=== PATIENT | male | born 1940 | race Caucasian/White ===

== ENCOUNTER 2020-05-11 13:27 | Inpatient (IN) | payer MEDICARE, OTHER ==
[2020-05-11 14:01] LABS: #Basophils 0.1 thou/uL (0.0-0.2); #Eosinphils 0.2 thou/uL (0.0-0.7); #Lymphocytes 1.4 thou/uL (1.20-3.40); #Neutrophils 5.3 thou/uL (1.40-6.50); %Basophils 0.8 % (0.0-1.0); %Lymphocytes 17.4 % (21.0-51.0); %Neutrophils 66.8 % (42.0-75.0); Hemoglobin 14.1 g/dL (14.0-18.0); Mean Corpuscular HGB CONC 33.6 g/dL (32.0-36.0); Mean Corpuscular Hemoglobin 31.5 pg (27.0-31.0); Mean Corpuscular Volume 93.8 fL (78.0-98.0); Mean Platelet Volume 7.5 fL (7.4-10.4); Platelet Count 268 thou/uL (130-400); RBC Distribution Width 13.5 % (11.5-14.5); Red Blood Cell (RBC) Count 4.48 mill/uL (4.70-6.10)
--- NOTE | 2020-05-11 14:04 | RAD ---
PORTABLE CHEST ONE VIEW: 05/11/20 at 1:58 p.m. HISTORY: Altered mental status. FINDINGS: The heart size is normal. The aorta is tortuous. The lungs are expanded without focal areas of consol idation, pneumothoraces, or pleural effusions. There are degenerative changes in the spine. IMPRESSION: No acute process. POS: [facility]
[2020-05-11 14:21] LABS: ALT (SGPT) 11 U/L (8-55); AST (SGOT) 14 U/L (5-34); Albumin 4.2 g/dL (3.4-4.8); Alkaline Phosphatase 61 U/L (40-110); Anion Gap 12 mmol/L (10-20); BUN (Urea Nitrogen) 17 mg/dL (8.4-25.7); Bilirubin, Total 0.9 mg/dL (0.2-1.2); Calc. Creatinine Clearance 0 mL/min (70-130); Calcium 9.6 mg/dL (7.8-10.44); Carbon Dioxide 27 mmol/L (23-31); Chloride 100 mmol/L (98-107); Estimated GFR-MDRD 65; Glucose 122 mg/dL (83-110); Potassium 3.8 mmol/L (3.5-5.1); Protein, Total 7.2 g/dL (5.8-8.1); Sodium 135 mmol/L (136-145)
--- NOTE | 2020-05-11 14:22 | CT ---
CT head noncontrast HISTORY: Altered mental status. FINDINGS: A very large extra-axial biconvex heterogeneous predominantly low density fluid collection along the left frontal convexity measures up to 11.6 cm length by 2.7 cm depth. It contains some irregular linear areas of increased density and significantly effaces the left frontal cortex. Small amount of vasogenic edema within the underlying left frontal lobe. Effacement of the left lateral ventricle with up to 1.0 cm rightward shift of the septum pellucidum. No associated calvarial fracture apparent. IMPRESSION : Very large left frontal subdural hematoma of mixed age, including some acute component. Findings were called to Trinidad Pat in the emergency department at 1414 hours. Code CR.
[2020-05-11 15:12] LABS: PTT 30.6 sec (22.9-36.1); Prothrombin Time 13.4 sec (12.0-14.7)
[2020-05-11] MEDS ORDERED: Morphine 2 MG/ML VIAL SLOW IVP PRN (16:00)
[2020-05-11] MEDS ORDERED: Ondansetron PF 4 MG/2 ML Vial IVP PRN (16:00)
[2020-05-11] MEDS ORDERED: HYDROcodone/Acetaminophen 7.5/325 mg Tablet PO PRN (16:00)
[2020-05-11] MEDS ORDERED: Acetaminophen 325 MG TAB PO PRN (16:00)
[2020-05-11] MEDS ORDERED: Acetaminophen/Codeine 30-300mg Tablet PO PRN (16:20)
[2020-05-11] MEDS ORDERED: traMADol HCl 50 MG TAB PO PRN (16:20)
[2020-05-11 17:39] VITALS: BMI 11.2
[2020-05-11] MEDS ORDERED: levETIRAcetam 500 MG TAB PO SCH (18:30)
[2020-05-11] MEDS: Sodium Chloride 0.9% 1,000 ML IV SCH (19:09)
--- NOTE | 2020-05-11 23:26 | HP ---
CHIEF COMPLAINT: Word-finding difficulty. HISTORY OF PRESENT ILLNESS: Mr. Rojas is a very pleasant 79-year-old gentleman, who presented with his to the emergency department today for evaluation of intermittent word-finding difficulties over the last 3 days. The patient's states that he has had trouble with forming sentences and picking up words intermittently over the last few days. Otherwise, he states that he has been at baseline. The patient has no weakness in his extremities or difficulty ambulating. In fact, he mowed the lawn yesterday. The patient denies any headache, vision changes, imbalance, dizziness, or any other symptoms. He denies any recent fall, head injury, or any other trauma. He states that otherwise he is feeling well. He is overall a very healthy gentleman. He is not taking any aspirin or other anticoagulants. MEDICATIONS: See list. ALLERGIES: NO KNOWN DRUG ALLERGIES. REVIEW OF SYSTEMS: Positive for word-finding difficulties, expressive aphasia. Otherwise, 12-point review of systems is negative. PHYSICAL EXAMINATION: The patient is awake, alert, and appropriate and in no apparent distress. Overall, he is alert and oriented x3. However, he incorrectly stated the year is 1999, but correctly stated the month and day of the week. Cranial nerves 2 through 12 are intact. Pupils are 2 mm, equal, and reactive to light. Extraocular movements are intact. No tongue fasciculations. No pronator drift. The patient has full range of motion of the upper and lower extremities bilaterally. He has 5/5 strength throughout his upper and lower extremity myotomes bilaterally. Sensation to light touch was intact throughout all extremities. Gait was not assessed at this time. IMPRESSION AND DIAGNOSES: 1. Large atraumatic left subdural hematoma with midline chest. 2. Expressive aphasia. PLAN: The case has been discussed and imaging reviewed with Dr. Darnell. CT of the brain showed findings of a very large left convexity subdural hematoma measuring approximately 3 cm at widest diameter, associated with approximately 1 cm of midline shift. Given that patient today, we were unable to take the patient to surgery at this time. Given his neurologic exam, he appears excellent at this time. No need for emergent operation. However, given the size of the subdural hematoma and potential for worsening of neurologic status, our team will plan to take patient to the OR tomorrow morning for left frontoparietal catalino hole evacuation of the subdural hematoma. Overnight, he will be admitted to the Critical Care Unit with q.1 hour neurologic checks. He will remain n.p.o. We will load the Keppra and place the patient on 500 mg p.o. b.i.d. as maintenance dose for one week for seizure prophylaxis. Discussed this plan with the patient, his , and family member via telephone call. I showed them the bleed on CAT scan demonstrates the large size of the bleed. They have given verbal consent for the operation at this time, as well as verbal consent should patient decline neurologically and require emergent catalino hole evacuation overnight. Our team will re-evaluate the patient in the morning and answer any additional questions the patient and/or his family may have. Please call for any neurologic changes or other concerns. This was a 50-minute initial consult in which greater than 50% of the time was spent in review of records, review of imaging, evaluation, examination of the patient, and formulation of a plan. The remaining time was spent in counseling and coordination of care. Job ID: [id number]
[2020-05-12 04:19] LABS: #Basophils 0.1 thou/uL (0.0-0.2); #Eosinphils 0.4 thou/uL (0.0-0.7); #Lymphocytes 1.1 thou/uL (1.20-3.40); #Monocytes 0.9 thou/uL (0.11-0.59); #Neutrophils 4.5 thou/uL (1.40-6.50); %Lymphocytes 15.7 % (21.0-51.0); %Monocytes 12.5 % (0.0-10.0); %Neutrophils 64.7 % (42.0-75.0); Hemoglobin 13.1 g/dL (14.0-18.0); Mean Corpuscular HGB CONC 33.4 g/dL (32.0-36.0); Mean Corpuscular Hemoglobin 31.7 pg (27.0-31.0); Mean Corpuscular Volume 94.9 fL (78.0-98.0); Mean Platelet Volume 7.5 fL (7.4-10.4); Platelet Count 206 thou/uL (130-400); RBC Distribution Width 13.2 % (11.5-14.5); Red Blood Cell (RBC) Count 4.12 mill/uL (4.70-6.10); White Blood Cell (WBC) Count 6.9 thou/uL (4.8-10.8)
[2020-05-12 04:30] LABS: INR-International Normal Ratio 1.1; PTT 33.1 sec (22.9-36.1); Prothrombin Time 13.7 sec (12.0-14.7)
[2020-05-12 04:38] LABS: Anion Gap 11 mmol/L (10-20); BUN (Urea Nitrogen) 13 mg/dL (8.4-25.7); Calc. Creatinine Clearance 33 mL/min (70-130); Calcium 8.6 mg/dL (7.8-10.44); Carbon Dioxide 28 mmol/L (23-31); Chloride 102 mmol/L (98-107); Estimated GFR-MDRD 79; Glucose 89 mg/dL (83-110); Potassium 3.9 mmol/L (3.5-5.1); Sodium 137 mmol/L (136-145)
[2020-05-12] MEDS: levETIRAcetam 500 MG TAB PO SCH ×2 (07:37→20:44)
[2020-05-12] MEDS: Sodium Chloride 0.9% 1,000 ML IV SCH ×2 (07:38→13:33)
[2020-05-12] MEDS ORDERED: Lidocaine 0.5%/Epinephrine 1:200,000 50 ml Vial ONE (09:15)
[2020-05-12] MEDS ORDERED: Bacitracin Zinc Ointment 30 gm TUBE ONE (09:16)
[2020-05-12] MEDS ORDERED: Fentanyl 100 MCG/2 ML VIAL ONE ×3 (09:30→11:48)
[2020-05-12] MEDS ORDERED: Phenylephrine 10 MG/ML VIAL ONE (09:31)
--- NOTE | 2020-05-12 11:17 | PRG ---
DATE OF SERVICE: 05/12/2020 Mr. Rojas is a 79-year-old male with no antecedent trauma. He is not on blood thinners. He presented with dysphasia, word-finding difficulty. He was found to have a large mixed density subdural hematoma with midline shift and mass effect. We are planning for trip to the OR for catalino hole evacuation. Job ID: [id number]
[2020-05-12] MEDS ORDERED: Lidocaine 1% PF 5 ML VIAL ONE (11:35)
[2020-05-12] MEDS ORDERED: Rocuronium Bromide 10 MG/ML (10ML VIAL) ONE (11:35)
[2020-05-12] MEDS ORDERED: Glycopyrrolate 0.2 MG/ML 5 ML SYRINGE ONE (11:35)
[2020-05-12] MEDS ORDERED: Esmolol 100 MG/10 ML VIAL ONE (11:35)
[2020-05-12] MEDS ORDERED: PROPOFOL 200 MG/20 ML VIAL ONE (11:35)
[2020-05-12] MEDS ORDERED: PHENYLEPHRINE-NS 100 MCG/ML 10 ML SYRINGE ONE (11:35)
[2020-05-12] MEDS ORDERED: PACU-Morphine 4MG/ML VIAL SLOW IVP PRN (11:44)
[2020-05-12] MEDS ORDERED: Ondansetron HCl/PF 4 MG/2 ML Vial IVP PRN (11:44)
[2020-05-12] MEDS ORDERED: HYDROmorphone 2 MG/ML VIAL SLOW IVP PRN (11:44)
[2020-05-12] MEDS ORDERED: Promethazine HCl 25 MG/ML VIAL SLOW IVP PRN (11:44)
[2020-05-12] MEDS ORDERED: Promethazine HCl 25 MG/ML VIAL IM PRN (11:44)
--- NOTE | 2020-05-12 15:39 | CON ---
DATE OF CONSULTATION: 05/12/2020 REASON FOR CONSULTATION: ICU admission. HISTORY OF PRESENT ILLNESS: This is a 79-year-old who presented to the Neurosurgery Service with a left-sided subdural hematoma, was taken to the OR today for drainage. He is doing well at the current time and has no complaints. PAST MEDICAL HISTORY: Hypertension. PAST SURGICAL HISTORY: Hemorrhoid surgery. SOCIAL HISTORY: Former smoker. Quit over 10 years ago. Does not consume alcohol. ALLERGIES: NONE. MEDICATIONS: Prior to admission, meloxicam and enalapril/hydrochlorothiazide. He is on no anticoagulation. REVIEW OF SYSTEMS: Twelve-point review of systems is otherwise negative. PHYSICAL EXAMINATION: VITAL SIGNS: Temperature 97.1, pulse 47, blood pressure 116/82, O2 saturation 100%. HEENT: Unremarkable. NECK: No adenopathy or JVD. LUNGS: Clear. CARDIAC: S1 and S2. Regular. ABDOMEN: Soft. EXTREMITIES: No edema. LABORATORY DATA: Chem-7 was normal. CBC is normal. COVID test is negative. ASSESSMENT: Subdural hematoma, now status post evacuation. PLAN: The patient is being appropriately treated in the ICU, put him on Protonix for stress ulcer prophylaxis. He is on compression for DVT prophylaxis. Likely can transfer to floor tomorrow. Job ID: [id number]
[2020-05-12] MEDS: CEFAZOLIN 2 GM in Premix Bag 1 BAG IVPB SCH (17:07)
[2020-05-13] MEDS: CEFAZOLIN 2 GM in Premix Bag 1 BAG IVPB SCH ×3 (02:00→17:32)
[2020-05-13] MEDS: Sodium Chloride 0.9% 1,000 ML IV SCH ×2 (02:02→23:52)
[2020-05-13] MEDS: levETIRAcetam 500 MG TAB PO SCH ×2 (07:51→20:04)
--- NOTE | 2020-05-13 08:21 | CT ---
PRELIMINARY REPORT/[facility]/AFTER HOURS PROCEDURE CT HEAD WITHOUT CONTRAST: 05/13/2020 4:37 a.m. INDICATION: S/P evacuation of left subdural hematoma. TECHNIQUE: Axial CT imaging was performed through the head without intravenous administration of contrast. Exam was performed using one or more of the following dose reduction techniques: automated exposure cont rol, adjustment of the mA and/or kV according to patient size, or use of iterative reconstruction sasha hnique. COMPARISON: CT Head 05/11/2020 at 2:14 p.m. FINDINGS: Imaging begins at the lower orbital level. Two bur holes in the left hemicranium are now seen with a percutaneous tunneled catheter entering the anterior bur hole with the tip of the catheter in the le ft subdural collection terminating anterior to the frontal lobe. Closing scalp mel are seen with some edema in the left superior scalp. The left subdural mixed attenuated collection has decreased now measuring 18 mm in thickness (image 2 2) with previous measurement approximating 27 mm (image 18). Septum pellucidum is shifted rightward on this exam by 5 mm (image 16) with previous measurement of 9 mm (image 14). Some gas within the kang bdural collection is seen. The brain is mildly atrophic. There is no evidence of an acute ischemic insult. The frontal sinus i s completely opacified with ethmoid locules nearly completely opacified. Minimal mucoperiosteal thic kening in a septated sphenoid sinus is seen. Mucosal thickening in the visualized maxillary sinuses is noted. Mastoid air cells are clear. IMPRESSION: 1. Status post bur hole placement in the left hemicranium with indwelling percutaneous subdural drai n with decreasing size of the mixed attenuated left subdural fluid collection, as described. 2. Pansinus disease. ELECTRONICALLY SIGNED BY: Doni Galeano DO May 13, 2020 4:58:07 AM CDT This report is intended for review by the ordering physician only, in accordance of law. If you recei ve this report in error, please call [facility] at [phone]. FINAL REPORT EMERGENT AFTER HOURS CT BRAIN WITHOUT IV CONTRAST: 05/13/20 4:37 a.m. COMPARISON: 05/11/20 FINDINGS: Left-sided postoperative changes with a subdural surgical drain with a chronic appearing left subdura l hematoma, which is decreasing in size. Morrow sinus mucosal disease. Approximately 0.4 cm midline shif t to the right, improved from prior study, at which time it was approximately 1 cm of midline shift t o the right. No significant new process. This report agrees with the preliminary report. CODE QA
--- NOTE | 2020-05-13 10:25 | PRG ---
DATE OF SERVICE: 05/13/2020 Mr. Rojas is postoperative day 1 from left frontoparietal catalino hole evacuation of subdural hematoma. He has had improvement in his subdural hematoma burden. His drain output has been 80 mL. He is neurologically much better with mild hand intrinsic weakness on the right side, but certainly moving again with more vigor. We will continue his drain, start sit him up and activity as tolerated today. Possible drain removal into the floor tomorrow. Job ID: [id number]
--- NOTE | 2020-05-13 10:51 | PRG ---
DATE OF SERVICE: 05/13/2020 SUBJECTIVE: The patient is doing much better today, much more awake, alert, has no neurologic deficits. OBJECTIVE: VITAL SIGNS: On exam, temperature is 97.8, pulse 62, blood pressure 124/76, and O2 saturation 99%. HEENT: Unremarkable. NECK: No JVD. CHEST: Clear. CARDIAC: S1 and S2. Regular. ABDOMEN: Soft. EXTREMITIES: No edema. ASSESSMENT: Status post evacuation of subdural hematoma. PLAN: Medical status is stable. I would anticipate him being either moved out of the ICU or perhaps even discharged to home tomorrow. Please call if further medical issues, need my attention. Job ID: [id number]
[2020-05-13] MEDS: Hydrochlorothiazide 25 MG TAB PO SCH (12:44)
[2020-05-13] MEDS: Lisinopril 10 MG TAB PO SCH (12:44)
--- NOTE | 2020-05-13 19:21 | OP ---
DATE OF PROCEDURE: 05/12/2020 MASTER LAY OUT SPECIALIST: TASIA Mukherjee PREPROCEDURE DIAGNOSIS: Large left chronic subdural hematoma, midline shift, mass effect, neurologic decline. POSTPROCEDURE DIAGNOSIS: Large left chronic subdural hematoma, midline shift, mass effect, neurologic decline. PROCEDURE PERFORMED: Left frontal parietal catalino hole evacuation of subdural hematoma and placement of drain. Modifier 57 should be added to this surgery as the decision to operate was made on the day I saw the patient. DESCRIPTION OF PROCEDURE: After informed consent was obtained from the patient, the patient was brought to the OR. Proper patient, pause, and identification were carried out. He was positioned supine. Following excellent general endotracheal anesthesia left frontal and parietal linear incisions were drawn out. These area were sterilely cleansed, prepared and draped. Proper patient, pause, and identification were carried out. The wounds were opened with sharp, monopolar, and blunt dissection. [place] holes fashioned. The dura opened and the pseudomembrane opened. Motor oil fluid came out under significant pressure as expected. This was irrigated clear. Drain was placed, secured and hooked to a bile bag. The wounds were copiously irrigated. Hemostasis maximized and closed in anatomic layers. The patient emerged from anesthesia. Job ID: [id number]
[2020-05-14] MEDS: CEFAZOLIN 2 GM in Premix Bag 1 BAG IVPB SCH ×2 (01:29→10:20)
--- NOTE | 2020-05-14 09:14 | PRG ---
DATE OF SERVICE: 05/14/2020 Mr. Rojas continues to do frankly outstanding. His wounds are dry. His drain output is as expected and we will remove it. We will arrange for safety evaluation this morning. If he is safe to go home, he will be discharged with followup arranged. Job ID: [id number]
[2020-05-14 10:10] VITALS: TEMP 98.4
[2020-05-14] MEDS: levETIRAcetam 500 MG TAB PO SCH (10:15)
[2020-05-14] MEDS: Hydrochlorothiazide 25 MG TAB PO SCH (10:15)
[2020-05-14] MEDS: Lisinopril 10 MG TAB PO SCH (10:19)
[2020-05-14 12:16] VITALS: BP 111/69
--- NOTE | 2020-05-15 08:17 | PQF ---
CLINICAL DOCUMENTATION CLARIFICATION FORM: Dear : Constantine Darnell Date / Time: 05/18/20 0815 Please exercise your independent, professional judgment in responding to the clarification form. Clinical indicators are provided on the bottom of this form for your review Please check appropriate box(es): [ ] Cerebral edema / Vasogenic edema [ ] Compression of brain [ ] Other diagnosis [ ] Unable to determine Physician Signature: Date/Time: For continuity of documentation, please document condition throughout progress notes and discharge summary. Thank You. To be completed by CDI/Coding staff for physician review: Present Clinical Indicators - Signs / Symptoms / Labs Results and Location in Medical Record [X] BP 134/83, Pulse 62, Resp 15, Temp 98.5 Vital signs 05/11 [X] GCS 15 Neurologic panel 05/11 [X] CT brain Very large frontal subdural hematoma of mixed age Imaging 05/11 Dr Yeh [X] CT brain Small amount of vasogenic edema Imaging 05/11 Dr Yeh [X] Large atrumatic left subdural hematoma with midline shift H&P p1 05/11 Logan PA-C [X] Expressive aphasia H&P p1 05/11 Logan PA-C [X] Large left chronic subdural hematoma, midline shift, mass effect, neurologic decline H&P p1 05/11 Logan PA-C Present Risk Factors Results and Location in Medical Record [X] 79 year-old Male H&P p1 05/11 Logan PA-C [X] Subdural Hematoma H&P p1 05/11 Logan PA-C [X] HTN H&P p1 05/11 Logan PA-C [X] Former Smoker ED Notes 05/11 Present Treatments Results and Location in Medical Record [X] IVF NS 1L JAN 06 [X] Keppra 1,000mg oral JAN 06 [X] CT brain Imaging 05/11 Dr Yeh [X] Evacuation of hematoma with drain placement Operative report 05/12 Dr Darnell [X] ICU admitted Order 05/12 Dr Darnell CDS/Soft Sugar Operator Head Signature: Ana Paula Ardondada Perla Phone #: ext [phone] Date/Time: 05/15/2020 0815 This is a permanent part of the Medical Record [facility]
--- NOTE | 2020-05-15 08:18 | PQF ---
CLINICAL DOCUMENTATION CLARIFICATION FORM: Dear : Constantine Darnell Date / Time: 05/18/20 0817 Please exercise your independent, professional judgment in responding to the clarification form. Clinical indicators are provided on the bottom of this form for your review Please check appropriate box(es): [ ] Associated Diagnosis: Hyponatremia [ ] Abnormal laboratory findings not clinically significant [ ] Other diagnosis [ ] Unable to determine In addition, please specify: Present on Admission (POA): [ ] Yes [ ] No [ ] Unable to determine Physician Signature: Date/Time: For continuity of documentation, please document condition throughout progress notes and discharge summary. Thank You. To be completed by CDI/Coding staff for physician review: Present Clinical Indicators - Signs / Symptoms / Labs Results and Location in Medical Record [X] Sodium 135 Laboratory Chemistry 05/11 [X] Glucose 122 Laboratory Chemistry [X] BP 134/83, Pulse 62, Resp 15, Temp 98.5 Vital signs 05/11 [X] mild hand intrinsic weakness PN 05/13 Present Risk Factors Results and Location in Medical Record [X] 79 year-old Male H&P p1 05/11 Logan PA-C [X] Subdural Hematoma H&P p1 05/11 Logan PA-C [X] HTN H&P p1 05/11 Logan PA-C [X] Former Smoker ED Notes 05/11 Present Treatments Results and Location in Medical Record [X] Series of electrolyte labs Laboratory Chemistry 05/11 [X] IVF Sodium Chloride 1L MAR 05/11 CDS/Caf[employer] Server Signature: Ana Paula Vigiljaime #: [phone] Date/Time: 05/15/2020 0817 This is a permanent part of the Medical Record [facility]
== END 2020-05-14 12:33 | disposition home or self-care (01) | DRG 27 ==
LOC: ERS 13:27 → CCU 17:32
PROVIDERS: ADMIT Surgery; ATTEND Surgery
PROC: 009400Z Drainage of Intracranial Subdural Space with Drainage Device, Open Approach (ICD-10-PCS; principal; 2020-05-12)
DX: I62.00 Nontraumatic subdural hemorrhage, unspecified (principal); R47.01 Aphasia; R47.02 Dysphasia; I10 Essential (primary) hypertension; G83.21 Monoplegia of upper limb affecting right dominant side; R40.2362 Coma scale, best motor response, obeys commands, at arrival to emergency department; R40.2142 Coma scale, eyes open, spontaneous, at arrival to emergency department; R40.2252 Coma scale, best verbal response, oriented, at arrival to emergency department; Z11.59 Encounter for screening for other viral diseases; Z87.891 Personal history of nicotine dependence; Z79.899 Other long term (current) drug therapy; Z79.1 Long term (current) use of non-steroidal anti-inflammatories (NSAID)
CPT/HCPCS: 36415; 70450; 71045; 80048; 80053; 84484; 85025; 85610; 85730; 93005; 96360; J0690; J2001; J2270; J2370; J2405; J2704; J3010; U0002

== ENCOUNTER 2020-07-27 06:54 | Outpatient (CLI) | payer MEDICARE, OTHER ==
--- NOTE | 2020-07-29 13:08 | EKG ---
Test Reason : Blood Pressure : / mmHG Vent. Rate : 087 BPM Atrial Rate : 087 BPM P-R Int : 162 ms QRS Dur : 140 ms QT Int : 388 ms P-R-T Axes : 083 084 061 degrees QTc Int : 466 ms Normal sinus rhythm Right bundle branch block Abnormal ECG No previous ECGs available Confirmed by VIELKA CARY MD ([id number]) on 07/29/2020 1:08:31 PM Referred By: JOSIANE Confirmed By:VIELKA CARY MD
== END 2020-07-27 06:55 | disposition home or self-care (01) ==
LOC: LABBT 06:54
PROVIDERS: ATTEND Urology
DX: Z01.810 Encounter for preprocedural cardiovascular examination (principal); Z12.5 Encounter for screening for malignant neoplasm of prostate; Z51.81 Encounter for therapeutic drug level monitoring; R82.89 Other abnormal findings on cytological and histological examination of urine; R97.20 Elevated prostate specific antigen [PSA]; N40.1 Benign prostatic hyperplasia with lower urinary tract symptoms; E29.1 Testicular hypofunction; R31.29 Other microscopic hematuria; N52.9 Male erectile dysfunction, unspecified; R91.1 Solitary pulmonary nodule; N39.41 Urge incontinence; Z79.890 Hormone replacement therapy; Z79.899 Other long term (current) drug therapy; Z87.891 Personal history of nicotine dependence; Z87.448 Personal history of other diseases of urinary system; Z87.898 Personal history of other specified conditions
CPT/HCPCS: 93005; 93010

== ENCOUNTER 2020-08-01 05:43 | Day surgery (SDC) | payer MEDICARE, OTHER ==
[2020-07-27 11:37] VITALS: BMI 25.8
[2020-07-27 14:23] LABS: Hemoglobin 14.8 g/dL (14.0-18.0); Mean Corpuscular HGB CONC 32.5 g/dL (32.0-36.0); Mean Corpuscular Hemoglobin 30.8 pg (27.0-31.0); Mean Corpuscular Volume 94.7 fL (78.0-98.0); Mean Platelet Volume 7.9 fL (7.4-10.4); Platelet Count 242 thou/uL (130-400); RBC Distribution Width 13.5 % (11.5-14.5); Red Blood Cell (RBC) Count 4.79 mill/uL (4.70-6.10); White Blood Cell (WBC) Count 9.6 thou/uL (4.8-10.8)
[2020-07-27 14:38] LABS: Prothrombin Time 12.9 sec (12.0-14.7)
[2020-07-27 14:39] LABS: PTT 33.7 sec (22.9-36.1)
[2020-07-27 14:44] LABS: Anion Gap 17 mmol/L (10-20); BUN (Urea Nitrogen) 14 mg/dL (8.4-25.7); Calc. Creatinine Clearance 0 mL/min (70-130); Calcium 9.1 mg/dL (7.8-10.44); Carbon Dioxide 27 mmol/L (23-31); Chloride 98 mmol/L (98-107); Estimated GFR-MDRD 82; Glucose 87 mg/dL (83-110); Potassium 4.7 mmol/L (3.5-5.1); Sodium 137 mmol/L (136-145)
[2020-07-27 14:56] LABS: Bacteria/HPF None Seen HPF (None Seen); Bilirubin Negative (Negative); Blood, Urine Negative (Negative); Clarity Clear (Clear); Glucose, Urine (Dipstick) Normal (Negative); Ketone, Urine Negative (Negative); Leukocyte Negative Leu/uL (Negative); Nitrite Negative (Negative); Protein, Urine (Dipstick) Negative (Neg-Trace); RBC/HPF 0-3 HPF (0-3); Specific Gravity, Urine 1.016 (1.002-1.036); Squamous Epithelial 0-3 HPF (0-3); Urobilinogen Normal mg/dL (Less than 2); WBC/HPF 0-3 HPF (0-3)
[2020-07-28 14:53] LABS: SARS-CoV-2 MS2 Positive; SARS-CoV-2 N Gene Negative; SARS-CoV-2 S Gene Negative; SARS-CoV-2 by NAA Not Detected (NotDetected); SARS-CoV-2 orf1ab Negative
[2020-08-01] MEDS ORDERED: Levofloxacin 500 mg/D5W 100 ml Premix Bag ONE (06:38)
[2020-08-01] MEDS ORDERED: Iothalamate Meglumine 60% 50 ML VIAL FS ONE ×2 (06:52→07:10)
[2020-08-01] MEDS ORDERED: Fentanyl 100 MCG/2 ML VIAL ONE (06:56)
[2020-08-01] MEDS ORDERED: Phenazopyridine HCl 97.5 MG TABLET ONE (09:51)
[2020-08-01] MEDS ORDERED: PROPOFOL 200 MG/20 ML VIAL ONE (11:23)
[2020-08-01] MEDS ORDERED: Lidocaine 1% PF 5 ML VIAL ONE (11:23)
[2020-08-01] MEDS ORDERED: Ondansetron PF 4 MG/2 ML Vial ONE (11:23)
--- NOTE | 2020-08-01 11:28 | RAD ---
RETROGRADE PYELOGRAM: A total of 4 fluoroscopic images were presented from the OR during retrograde procedure. INDICATION: Bladder tumor with intraoperative imaging during retrograde pyelogram. FINDINGS: The images presented show opacification of both collecting systems. No filling defect identified. POS: [facility]
--- NOTE | 2020-08-01 16:09 | OP ---
DATE OF PROCEDURE: 08/01/2020 PREOPERATIVE DIAGNOSES: 1. 80-year-old male with history of gross hematuria with spontaneous resolution. 2. Microscopic hematuria. 3. BPH. 4. positive urine cytology. POSTOPERATIVE DIAGNOSES: 1. 80-year-old male with history of gross hematuria with spontaneous resolution. 2. Microscopic hematuria. 3. BPH. 4. positive urine cytology. PROCEDURES PERFORMED: Blue light cystoscopy, random bladder biopsy, fulguration of biopsy site ,bilateral retrograde pyelogram, urine barbotage for FISH cytology, fulguration of bladder neck, prostatic urethra , 18-[place] Islander 30 mL three-way Cortes catheter to gravity INTRAOPERATIVE FINDINGS: 1. Moderate bilobar hyperplasia of the prostate. 2. Diffuse hyperemia of the bladder with prominent vascularity consistent with previous local cystoscopy. 3. No obvious papillary lesion. 4. Prostatic and bladder mucosa with hypervascularity, with diffuse oozing of the mucosa consistent with hemorrhagic cystitis with distention of the bladder. 5. Blue light cystoscopy demonstrating questionable abnormality of the posterior wall, which was included in the biopsy. 6. Retrograde pyelogram demonstrates no evidence of hydronephrosis or filling defect of concern. Specimen: Bladder wash for fish cytology, random bladder biopsy x3 INDICATIONS FOR THE PROCEDURE AND HISTORY: Mr. Rojas is a pleasant 80-year-old male, with history of BPH, on dual medical therapy, presented for evaluation of gross hematuria with spontaneous resolution. He underwent CT, demonstrating no ureteral renal lesion of concern, incidentally is nonspecific diffuse bladder wall thickening. He underwent cystoscopy locally, which demonstrated as above hypervascularity of the bladder mucosa and the prostatic mucosa with oozing noted, no papillary lesions were seen. 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 Risks and complications of the procedure have been discussed with him in detail including, but not limited to, bleeding, pain, infection, injury to adjacent organs, urosepsis, bladder urethral injury. All questions answered to his satisfaction and he desired to proceed. DESCRIPTION OF PROCEDURE: After an informed consent was signed, the patient was taken to the operating room, placed in a dorsal lithotomy position with the genital area prepped and draped in the usual surgical sterile fashion. A 21-[place] Islander cystoscope was utilized for cystoscopy with a camera with blue light capacity. Cystoscopy routinely was performed first demonstrating again no evidence of urethral stricture, bilobar moderate hyperplasia of the prostate. There was no evidence of intravesical median lobe. UOs were identified about 3 to 4 cm proximal to the bladder neck. We performed a retrograde pyelogram, which demonstrated no gross evidence of filling defect and prompt excretion of contrast was noted. As there was prompt excretion with no filling defect, we did not perform a ureteroscopy. The bladder demonstrated as previous diffuse hyperemia, with prominent vasculature. There was no gross papillary lesion of the prostatic urethra mucosa, bladder neck, or the bladder mucosa using a 30 and a 70-degree lens. Then, we subsequently transitioned to a blue light cystoscopy capacity, which demonstrated the obvious prominent vasculature. As there was persistent seepage of the bladder mucosa consistent with hemorrhagic cystitis changes with distention of the bladder, visualization is somewhat poor. With the blue light capacity, there may have been some subtle prominence at the posterior wall, however this was very vague, but I did biopsy this region. We performed a random bladder biopsy in the left and right lateral wall, where there may be a component of more prominence on the blue light; however, this remains very vague as he remains hyperemic with seepage of the bladder mucosa. The bladder biopsy was performed uneventfully and using endoscopic Bugbee, the biopsy sites were fulgurated. He has also oozing from the prostatic urethra mucosa consistent with a prior local cystoscopy and I fulgurated the bladder neck prostatic urethra with Bugbee as well. An 18-[place]er 30 mL three-way Cortes catheter was placed, light red urine was noted and CBI port plugged. I will monitor him in recovery regarding degree of hematuria. Given the circumstances as he has prominent vascularity with hyperemia and seepage and weeping mucosa, I will leave an indwelling Cortes catheter for a few days. He will return to clinic this Thursday and if urine output remains relatively clear, we will remove Cortes catheter as he is not in retention of concern. He is discharged with ciprofloxacin for course of 5 days, Azo p.r.n., and tramadol 50 mg. He does have arthritic changes, which he prefers meloxicam. I informed the patient to hold meloxicam and transition to tramadol while he is recovering from recent bladder biopsy. Job ID: [id number] [facility]
== END 2020-08-01 10:40 | disposition home or self-care (01) ==
LOC: SDC 05:43
PROVIDERS: ATTEND Urology
PROC: 0TBB8ZX Excision of Bladder, Via Natural or Artificial Opening Endoscopic, Diagnostic (ICD-10-PCS; principal; 2020-08-01)
PROC: 0T5C8ZZ Destruction of Bladder Neck, Via Natural or Artificial Opening Endoscopic (ICD-10-PCS; 2020-08-01)
PROC: BT141ZZ Fluoroscopy of Kidneys, Ureters and Bladder using Low Osmolar Contrast (ICD-10-PCS; 2020-08-01)
DX: N32.89 Other specified disorders of bladder (principal); N40.1 Benign prostatic hyperplasia with lower urinary tract symptoms; N39.41 Urge incontinence; N52.9 Male erectile dysfunction, unspecified; E29.1 Testicular hypofunction; R31.0 Gross hematuria; R31.29 Other microscopic hematuria; R82.89 Other abnormal findings on cytological and histological examination of urine; R91.1 Solitary pulmonary nodule; Z87.891 Personal history of nicotine dependence; Z79.1 Long term (current) use of non-steroidal anti-inflammatories (NSAID); Z79.899 Other long term (current) drug therapy; Z20.828 Contact with and (suspected) exposure to other viral communicable diseases
CPT/HCPCS: 52005; 52204; 52214; 74420; 80048; 81001; 85027; 85610; 85730; 86850; 86900; 86901; 87086; 88121; 88305; 88342; C9738; U0003; 36415; 87635; J1956; J2405; J2704; J3010

== ENCOUNTER 2020-09-30 18:17 | Inpatient (IN) | payer MEDICARE, OTHER ==
[~2020-09-30 18:17] MED LIST: Iopamidol-370 76% 500 ML 1 ML ONE
[2020-09-30 18:53] LABS: #Basophils 0.1 thou/uL (0.0-0.2); #Eosinphils 0.1 thou/uL (0.0-0.7); #Lymphocytes 1.1 thou/uL (1.20-3.40); #Monocytes 1.3 thou/uL (0.11-0.59); #Neutrophils 10.7 thou/uL (1.40-6.50); %Basophils 0.4 % (0.0-1.0); %Eosinophils 0.7 % (0.0-10.0); %Lymphocytes 8.1 % (21.0-51.0); %Neutrophils 80.8 % (42.0-75.0); Hemoglobin 12.6 g/dL (14.0-18.0); Mean Corpuscular HGB CONC 33.5 g/dL (32.0-36.0); Mean Corpuscular Hemoglobin 28.9 pg (27.0-31.0); Mean Corpuscular Volume 86.3 fL (78.0-98.0); Mean Platelet Volume 7.1 fL (7.4-10.4); Platelet Count 333 thou/uL (130-400); RBC Distribution Width 12.3 % (11.5-14.5); Red Blood Cell (RBC) Count 4.36 mill/uL (4.70-6.10); White Blood Cell (WBC) Count 13.3 thou/uL (4.8-10.8)
[2020-09-30 18:59] LABS: INR-International Normal Ratio 1.1; PTT 36.3 sec (22.9-36.1); Prothrombin Time 14.8 sec (12.0-14.7)
[2020-09-30 19:01] LABS: D-Dimer Test 1.1 *mcg/mL (0.27-0.43)
[2020-09-30 19:11] LABS: ALT (SGPT) 28 U/L (8-55); AST (SGOT) 26 U/L (5-34); Albumin 3.3 g/dL (3.4-4.8); Alkaline Phosphatase 119 U/L (40-110); Anion Gap 17 mmol/L (10-20); BUN (Urea Nitrogen) 19 mg/dL (8.4-25.7); Bilirubin, Total 0.5 mg/dL (0.2-1.2); CK (CPK) 17 U/L (30-200); Calc. Creatinine Clearance 0 mL/min (70-130); Calcium 9.2 mg/dL (7.8-10.44); Carbon Dioxide 25 mmol/L (23-31); Chloride 88 mmol/L (98-107); Estimated GFR-MDRD Greater than 90; Globulin 3.6 g/dL (2.4-3.5); Glucose 113 mg/dL (83-110); Lipase 37 U/L (8-78); Potassium 4.2 mmol/L (3.5-5.1); Protein, Total 6.9 g/dL (5.8-8.1); Sodium 126 mmol/L (136-145)
--- NOTE | 2020-09-30 19:14 | RAD ---
RIGHT KNEE RADIOGRAPHS FOUR VIEWS: Date: 09-30-2020 PROVIDED CLINICAL HISTORY: Pain status post injury FINDINGS: Prominent vascular calcifications. No evidence for fracture or other acute osseous abnormality. If th ere is persistent clinical concern, conservative management and follow up imaging are advised. IMPRESSION: As above. POS: [facility]
--- NOTE | 2020-09-30 19:24 | RAD ---
PORTABLE CHEST: Date: 09-30-2020 PROVIDED CLINICAL HISTORY: Syncope FINDINGS: Comparison is made with the study dated 06-15-2020. Interval development of multiple nodular densities throughout the lung parenchyma bilaterally as well as mass-like appearance to the right infrahilar region. No pleural fluid or pneumothorax apparent. T he costophrenic angles are not entirely included, limiting evaluation. The cardiac silhouette is norm al in size. IMPRESSION: 1. Development of numerous bilateral pulmonary nodules suspicious for metastatic disease. 2. Right infrahilar mass that may reflect adenopathy or neoplasm. POS: [facility]O
--- NOTE | 2020-09-30 20:58 | CT ---
CT CERVICAL SPINE: Date: 09-30-2020 PROVIDED CLINICAL HISTORY: Trauma FINDINGS: There is no evidence for fracture or traumatic subluxation. There is no prevertebral soft tissue swel ling apparent. There are numerous partially visualized lung nodules involving the visualized lung api ken. There is probably an enlarged right paratracheal lymph node. Degenerative changes are seen. No l ytic or blastic bony lesions are evident. IMPRESSION: 1. No evidence for fracture or traumatic subluxation. 2. Partially visualized bilateral lung nodules and mediastinal lymph node enlargement suspicious for metastatic disease. POS: [facility]O
--- NOTE | 2020-09-30 21:24 | CT ---
CT BRAIN: Date: 09-30-2020 PROVIDED CLINICAL HISTORY: Trauma FINDINGS: Comparison is made with the examination dated 06-15-2020. The ventricular system appears normal in size and morphology. There is re-demonstration of a subacute left cerebal convexity subdural hematoma, which appears decreased in size with respect to the prior CT examination. Craniotomy defects are seen within the left frontal and parietal skull. There is no e vidence for acute intracranial hemorrhage or significant mass effect. There is no shift of the midlin e structures. The basilar cisterns appear patent. The extracranial soft tissues and osseous structure s demonstrate an otherwise unremarkable CT appearance with the exception of a left parietal scalp hem atoma. IMPRESSION: No evidence for acute intracranial hemorrhage or significant mass effect. POS: INO
--- NOTE | 2020-09-30 21:36 | CT ---
CT PULMONARY ANGIOGRAM WITH IV CONTRAST AND 3D MIP RECONSTRUCTIONS: Date: 09-30-2020 PROVIDED CLINICAL HISTORY: Syncope FINDINGS: There is no evidence for central or segmental pulmonary embolus. There are innumerable bilateral pulmonary nodules. There is a mass like area of consolidation present at the medial aspect of the superior segment of the right lower lobe, measuring at least 2.6 x 6.4 c m in greatest transverse dimensions. There is marked abnormal soft tissue density in the subcarinal a nd right hilar regions, likely reflecting adenopathy. There is an enlarged infrahilar lymph node. The re are multiple enlarged paratracheal lymph nodes. There is no evidence for axillary lymph node enlar gement. Vascular calcification including coronary calcium is demonstrated. There is a small amount of right p leural fluid. There is no evidence for pneumothorax. The visualized portions of the upper abdomen demonstrate a 2.4 cm hypodense mass involving the right hepatic lobe. The osseous structures demonstrate no concerning lytic or blastic lesions. IMPRESSION: 1. No evidence of central or segmental pulmonary embolus. 2. Bilateral lung nodes and superior segment right lower lobe pulmonary mass compatible with neoplas m. The small nodules are likely metastases. The mass could be primary malignancy or metastasis. 3. Right hepatic lobe mass suspicious for metastasis. 4. Small right pleural fluid. 5. Mediastinal and hilar adenopathy. POS: INO
[2020-09-30] MEDS ORDERED: HYDROcodone/Acetaminophen 5/325 mg Tablet PO PRN ×2 (23:01)
[2020-09-30] MEDS ORDERED: Acetaminophen 650 MG Suppository PR PRN (23:01)
[2020-09-30] MEDS ORDERED: Ondansetron PF 4 MG/2 ML Vial IVP PRN (23:01)
[2020-09-30] MEDS ORDERED: Ondansetron ODT 4 MG TAB PO PRN (23:01)
[2020-09-30] MEDS ORDERED: Calcium Carbonate 500 MG ChewTAB PO PRN (23:01)
[2020-09-30] MEDS ORDERED: Acetaminophen 325 MG TAB PO PRN (23:01)
--- NOTE | 2020-09-30 23:07 | PDOC.HHP ---
Hospitalist HPI - History of Present Illness syncope History of Present Illness: Case of an 80-year-old male with a pmhx f htn and bladder CA who is receiving BCG treatments comes to hospital for a syncope episode. apparently patient wsa on his usual state of health until today when he had a syncope episode. patient states he belives he did not lose consciousness but daughter refers he did, was apparently found by his neighbor in the floor. patient states he was been feeling progressively weak since 3 weeks ago. he states he he began his BCG treatment 5 weeks ago, last treatment was this last thursday. patient states he has not been eating well since starting treatment and has been maintaining himself with pharmacy bought shakes, which he drink 3 a day. patient had a completed trauma work up at ed which was negative but chest ct found multiple nodules and masses suspecious for metastasis to the lung and liver. patient denies any fever chills n/v focal weakness dysuria or diarrhea. does refers ariel musa, he recently loss his 3 weeks ago. Hospitalist ROS - Review of Systems All other systems reviewed; all pertinent +/- noted in HPI/Subj Hospitalist History - Past Surgical History Past Surgical History: reports: Hernia Repair Other Surgical History: hemorroidectomy - Family History Family History: reports: no pertinent history - Social History Smoking Status: Former smoker Alcohol: reports: None Living Situation: Alone - Exam General Appearance: NAD, awake alert Eye: PERRL, anicteric sclera ENT: normocephalic atraumatic, no oropharyngeal lesions, dry oral mucosa Neck: supple, symmetric, no JVD, no thyromegaly Heart: RRR, no murmur, no gallops, no rubs Respiratory: CTAB, no wheezes, no rales, no ronchi Gastrointestinal: soft, non-tender, non-distended, normal bowel sounds Extremities: no cyanosis, no clubbing, no edema Skin: normal turgor, no lesions, no rashes Neurological: cranial nerve grossly intact, normal sensation to touch, no weakness Musculoskeletal: normal tone, normal strength, no muscle wasting Psychiatric: normal affect, normal behavior, A&O x 3 Hospitalist Results - Labs Result Diagrams: 09/30/20 18:36 09/30/20 18:36 Lab results: WBC 13.3 thou/uL (4.8-10.8) H 09/30/20 18:36 Hgb 12.6 g/dL (14.0-18.0) L 09/30/20 18:36 Hct 37.7 % (42.0-52.0) L 09/30/20 18:36 MCV 86.3 fL (78.0-98.0) 09/30/20 18:36 Plt Count 333 thou/uL (130-400) 09/30/20 18:36 Neutrophils % 80.8 % (42.0-75.0) H 09/30/20 18:36 Sodium 126 mmol/L (136-145) L 09/30/20 18:36 Potassium 4.2 mmol/L (3.5-5.1) 09/30/20 18:36 Chloride 88 mmol/L (98-107) L 09/30/20 18:36 Carbon Dioxide 25 mmol/L (23-31) 09/30/20 18:36 BUN 19 mg/dL (8.4-25.7) 09/30/20 18:36 Creatinine 0.81 mg/dL (0.7-1.3) 09/30/20 18:36 Glucose 113 mg/dL (83-110) H 09/30/20 18:36 Calcium 9.2 mg/dL (7.8-10.44) 09/30/20 18:36 Total Bilirubin 0.5 mg/dL (0.2-1.2) 09/30/20 18:36 AST 26 U/L (5-34) 09/30/20 18:36 ALT 28 U/L (8-55) 09/30/20 18:36 Alkaline Phosphatase 119 U/L (40-110) H 09/30/20 18:36 Creatine Kinase 17 U/L (30-200) L 09/30/20 18:36 Troponin I 0.013 ng/mL (< 0.028) 09/30/20 18:36 B-Natriuretic Peptide 22.0 pg/mL (0-100) 09/30/20 18:36 Serum Total Protein 6.9 g/dL (5.8-8.1) 09/30/20 18:36 Albumin 3.3 g/dL (3.4-4.8) L 09/30/20 18:36 Lipase 37 U/L (8-78) 09/30/20 18:36 Hospitalist H&P A/P - Problem (1) Syncope Code(s): R55 - SYNCOPE AND COLLAPSE Status: Acute (2) Hyponatremia Code(s): E87.1 - HYPO-OSMOLALITY AND HYPONATREMIA Status: Acute (3) 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 Code(s): C67.9 - MALIGNANT NEOPLASM OF BLADDER, UNSPECIFIED; C78.00 - SECONDARY MALIGNANT NEOPLASM OF UNSPECIFIED LUNG Status: Acute (4) HTN (hypertension) Code(s): I10 - ESSENTIAL (PRIMARY) HYPERTENSION Status: Acute (5) Hx of intracranial hemorrhage Code(s): Z86.79 - PERSONAL HISTORY OF OTHER DISEASES OF THE CIRCULATORY SYSTEM Status: Acute - Plan Plan: Case of an 80y/o male with the stated pmhx who presents to hospital due to syncope found to have metastatic disease con chest ct syncope - likely multifactorial, on chemo with dehydartion and hyponatremia - no ischemic st changes on ekg - will get 2d echo - will trend troponins - telemtry monitoring to detect any hidden arrythmia hyponatremia / dehydration - likely hypoosmolar hypovolemic - hx of recent loss of spouse, poor food intake for weeks - calculated osmolality low at 265 - will hydrate w NS - f/u bmps bladder ca with new findings of lung and liver mets - hx on bladder CA on BCG - chest ct/ cxr with findings of multiple focus of metastasis to lung and liver - will consult oncology htn - will hold medication for now in setting of hypovolemia - borderline hypotensive
[2020-10-01 01:55] LABS: SARS-CoV-2 MS2 Positive; SARS-CoV-2 N Gene Negative; SARS-CoV-2 S Gene Negative; SARS-CoV-2 by NAA Not Detected (NotDetected); SARS-CoV-2 orf1ab Negative
[2020-10-01] MEDS: Sodium Chloride 0.9% 1,000 ML IV SCH ×2 (03:42→16:52)
[2020-10-01 04:14] VITALS: BMI 22.6
[2020-10-01 04:56] LABS: Band 8 % (5-11); Eosinophils 1 % (0-10); Hemoglobin 10.9 g/dL (14.0-18.0); Lymphocytes 6 % (21-51); MDiff Complete? YES; Mean Corpuscular HGB CONC 33.1 g/dL (32.0-36.0); Mean Corpuscular Volume 87.7 fL (78.0-98.0); Mean Platelet Volume 6.7 fL (7.4-10.4); Metamyelocyte 1 % (0-0); Monocytes 14 % (0-10); Neutrophil 70 % (42-75); Platelet Count 261 thou/uL (130-400); Platelet Morphology Comment Appears Adequate; RBC Distribution Width 12.3 % (11.5-14.5); Red Blood Cell (RBC) Count 3.76 mill/uL (4.70-6.10); White Blood Cell (WBC) Count 9.7 thou/uL (4.8-10.8)
[2020-10-01 05:12] LABS: ALT (SGPT) 19 U/L (8-55); AST (SGOT) 17 U/L (5-34); Albumin 2.7 g/dL (3.4-4.8); Alkaline Phosphatase 98 U/L (40-110); Anion Gap 13 mmol/L (10-20); BUN (Urea Nitrogen) 13 mg/dL (8.4-25.7); Bilirubin, Total 0.4 mg/dL (0.2-1.2); Calc. Creatinine Clearance 90 mL/min (70-130); Calcium 8.1 mg/dL (7.8-10.44); Carbon Dioxide 23 mmol/L (23-31); Chloride 96 mmol/L (98-107); Estimated GFR-MDRD Greater than 90; Globulin 2.7 g/dL (2.4-3.5); Glucose 93 mg/dL (83-110); Magnesium 1.7 mg/dL (1.6-2.6); Potassium 4.1 mmol/L (3.5-5.1); Protein, Total 5.4 g/dL (5.8-8.1); Sodium 128 mmol/L (136-145)
[2020-10-01 05:55] LABS: Bacteria/HPF None Seen HPF (None Seen); Bilirubin Negative (Negative); Blood, Urine Negative (Negative); Clarity Clear (Clear); Glucose, Urine (Dipstick) Normal (Negative); Ketone, Urine Negative (Negative); Leukocyte Negative Leu/uL (Negative); Nitrite Negative (Negative); Protein, Urine (Dipstick) Negative (Neg-Trace); RBC/HPF 0-3 HPF (0-3); Specific Gravity, Urine 1.015 (1.002-1.036); Squamous Epithelial None Seen HPF (0-3); Urobilinogen Normal mg/dL (Less than 2); WBC/HPF 0-3 HPF (0-3); pH, Urine 6.5 (5.0-9.0)
[2020-10-01 05:59] LABS: Urine Culture Reflex No No
--- NOTE | 2020-10-01 08:36 | CON ---
DATE OF CONSULTATION: 10/01/2020 REASON FOR CONSULTATION: Loss of appetite, multiple pulmonary nodules, history of carcinoma in situ of the bladder. HISTORY OF PRESENT ILLNESS: Mr. Rojas is a pleasant 80-year-old male, initially presented for symptoms of BPH refractory to tamsulosin, which he had been on b.i.d. Prior history of being on testosterone injection by his previous PCP from [place] since 2010. Testosterone injection was restarted by his primary care physician in [place], and then continued to do so with Dr. Pastrana. Per my recommendation, this was held due to elev PSA 4.2 and as testosterone can exacerbate BPH symptoms. He also has a recent history of subdural hematoma with no gross focal deficits. He initially presented with digital rectal exam with no discrete nodularity, PSA was mildly elevated to 4.2, subsequently after dc testosterone and rechecked PSA has normalized on observation. Subsequently, his PSA normalized to 2.57 and he was started on dual medical therapy, which began on March 2020, which he has been tolerating uneventfully. Prior testosterone level was supraphysiologic at greater than 1500. His prior CT scan obtained from June 2020 by his neurosurgeon demonstrated bilateral renal cyst, diffuse bladder thickening, decompressed bladder and CT prostate volume was about 70 g with no median lobes. He does have history of benign lung nodules, previously followed by presetter operator and I did refer him to a local presetter operator, appointment yet pending. His subsequent workup demonstrated on cystoscopy, bilobar hyperplasia, trabeculated bladder with prominent vascularity and oozing from the bladder mucosa with no papillary lesion of concern. As he had prior history of hematuria, cytology was obtained, which was positive. Therefore, he underwent repeat cystoscopy and a random bladder biopsy, bilateral retrograde and this demonstrated component of high-grade dysplasia, carcinoma in situ of bladder ; therefore, he was started on BCG. He has been tolerating BCG uneventfully, as a matter of fact he has an appointment with us for his last dose of his 6 weekly induction BCG today. Unfortunately, Mr. Rojas recently lost his of numerous years and has been mourning, moreover has had poor appetite and is admitted for dehydration, syncope, and hyponatremia. I did review his CT of the chest on arrival with COVID-19 negative demonstrating numerous pulmonary nodules. He states that this morning he is feeling well, still continues to mourn his . He relates to me he has lost about 20 pounds due to decreased appetite. Voided urine at the bedside is yellow and denies symptomatic dysuria and gross hematuria at this time. PAST MEDICAL HISTORY: Includes shingles, history of lung nodules PET scan benign per patient in the past, hard of hearing, and subdural hematoma in May [address] Darnell. Carcinoma in situ of the bladder PAST SURGICAL HISTORY: Hemorrhoidectomy, bilateral inguinal hernia repair, frontal catalino hole evacuation of subdural hematoma in May 2020, prior cystoscopy demonstrated moderate bilobar hyperplasia with diffuse vascularity of the bladder mucosa with no papillary lesion, Cystoscopy with random bladder biopsy on August 01 demonstrating component of carcinoma in situ. SOCIAL HISTORY: He is a former smoker, quit. Psychiatric: Appropriate intact REVIEW OF SYSTEMS: A 10-point review of systems as above otherwise noncontributory. ALLERGIES: NO KNOWN DRUG ALLERGIES. Inpatient meds: Bertram, Zofran ,tums Flomax PHYSICAL EXAMINATION: VITAL SIGNS: Currently are stable. He is afebrile. General: In no acute distress HEENT: Grossly unremarkable. HEART: Regular rate. LUNGS: Decreased inspiratory effort. Occasional wheeze. ABDOMEN: Soft, nontender, nondistended, scaphoid. : Uncircumcised, meatus is grossly unremarkable. Testes are descended with no evidence of intratesticular mass. Voided urine at bedside is yellow. CHAYO grossly unremarkable with no discrete nodularity of concern. EXTREMITIES: No cyanosis, clubbing, or edema. NEUROLOGIC: No gross focal deficits appreciated. SKIN: No lesions. No rashes appreciated. Psychiatric: Appropriate PERTINENT LABS AND IMAGING: White count 9, hemoglobin 10, platelet 261. INR is 1.1, PTT of 36. Sodium 126, creatinine 0.6. UA is negative. On 09/30, COVID is negative. CT of the chest on arrival demonstrates diffuse pulmonary lesions. CT of the chest from June 2020 demonstrates bilateral renal cysts, diffuse bladder thickening of the bladder, no intraluminal mass. With no evidence of hydronephrosis, IMPRESSION AND PLAN: 1. Mr. Rojas is an 80-year-old male with history of carcinoma in situ. 2. History of BPH and there was supraphysiologic level of testosterone on hold due to elevated PSA with subsequent normalization. 3. Unremarkable digital rectal exam today and previous with prior PSA of 2.57. Recheck PSA 4. History of fatigue, weight loss. 5. Multiple pulmonary nodules as above. Recommend pulmonary consult, agree with Hem-Onc. Lovenox will be held, as I anticipate that he should have a lung biopsy of his numerous nodules likely on this admission. 6. Recommend CT of the abdomen and pelvis for staging. Not a clear-cut picture of the carcinoma in situ can cause diffuse pulmonary mets that he presents. CT of the abdomen and pelvis will be obtained to rule out retroperitoneal pelvic mets. Other primary malignancy needs to be ruled out such as primary lung cancer Job ID: [id number] [facility]
[2020-10-01] MEDS: Tamsulosin HCl 0.4 MG CAP PO SCH (08:57)
[2020-10-01] MEDS ORDERED: Enoxaparin Sodium 40 MG/0.4 ML SYRINGE SC SCH (09:00)
[2020-10-01] MEDS ORDERED: Iopamidol-370 76% 500 ML 1 ML ONE (10:05)
--- NOTE | 2020-10-01 10:06 | PDOC.HOSPP ---
- Subjective Encounter Date: 10/01/20 Encounter Time: 10:00 Subjective: has sob and cough son at bedside has lost lot of weight from may onwards - Objective Vital Signs & Weight: Vital Signs (12 hours) Temp Pulse Resp BP Pulse Ox 10/01/20 07:27 98.2 F 78 19 103/58 L 95 10/01/20 04:00 98.0 F 63 16 106/56 L 93 L 10/01/20 00:10 97.6 F 62 20 102/58 L 94 L Weight Weight 157 lb 8 oz I&O: 09/30/20 10/01/20 10/02/20 06:59 06:59 06:59 Output Total 500 Balance -500 Result Diagrams: 10/01/20 04:36 10/01/20 04:36 Hospitalist ROS - Medication Medications: Active Medications Generic Name Dose Route Start Last Admin Trade Name Freq PRN Reason Stop Dose Admin Sodium Chloride 1,000 mls @ 70 mls/hr 09/30/20 23:15 10/01/20 03:42 Normal Saline 0.9% IV 1,000 mls .[id number] TERRY Administration Sodium Chloride 10 ml 10/01/20 09:00 10/01/20 08:56 Flush - Normal Saline 10 Ml Syringe IVF 10 ml Q12HR TERRY Administration Tamsulosin HCl 0.4 mg 10/01/20 09:00 10/01/20 08:57 Tamsulosin Hcl 0.4 Mg Cap PO 0.4 mg QAM TERRY Administration - Exam General Appearance: awake alert Eye: PERRL, anicteric sclera ENT: no oropharyngeal lesions, moist mucosa Neck: supple, no JVD Heart: RRR, no murmur Respiratory: no wheezes, no rales, rhonchi Gastrointestinal: soft, non-tender, non-distended, normal bowel sounds Extremities: no cyanosis, no edema Neurological: cranial nerve grossly intact, no focal deficits Psychiatric: normal affect, A&O x 3 Hosp A/P (1) Multiple lesions of metastatic malignancy Code(s): C79.9 - SECONDARY MALIGNANT NEOPLASM OF UNSPECIFIED SITE Status: Acute (2) H/O carcinoma of bladder Code(s): Z85.51 - PERSONAL HISTORY OF MALIGNANT NEOPLASM OF BLADDER Status: Chronic (3) SDH (subdural hematoma) Code(s): S06.5X9A - TRAUM SUBDR HEM W LOC OF UNSP DURATION, INIT Status: Chronic (4) HTN (hypertension) Code(s): I10 - ESSENTIAL (PRIMARY) HYPERTENSION Status: Chronic Qualifiers: Hypertension type: essential hypertension Qualified Code(s): I10 - Essential (primary) hypertension (5) Hyponatremia Code(s): E87.1 - HYPO-OSMOLALITY AND HYPONATREMIA Status: Acute (6) Syncope Code(s): R55 - SYNCOPE AND COLLAPSE Status: Acute - Plan await CT abd results, CT lung shows numerous metastatic lesions await pulm and onc opinion d/w son and patient at bedside hemostable very poor prognosis
--- NOTE | 2020-10-01 10:34 | CT ---
CT ABDOMEN AND PELVIS WITH AND WITHOUT IV CONTRAST: DATE: 10/01/2020. PROVIDED CLINICAL HISTORY: Bladder cancer, abnormal chest CT. FINDINGS: Comparison is made with the CT examination of the abdomen and pelvis dated 06/15/2020. Correlation is made with the CT of the chest performed 09/30/2020. Innumerable bilateral lung nodules are redemonstrated, markedly increased in size and number with res pect to the 06/15/2020 examination. There is a newly developed 2.6 cm hypodense mass involving the medial segment of the left hepatic lob e. There are simple cysts again seen involving both kidneys. The spleen, pancreas, and adrenal glan ds appear unremarkable. The delayed images demonstrate no evidence for filling defect involving the renal collecting systems, opacified ureters, or urinary bladder. There is no bowel dilatation, inflammatory fat stranding, free fluid, or lymph node enlargement withi n the abdomen and pelvis. Prominent atherosclerotic vascular calcifications are seen. The osseous structures demonstrate no concerning lytic or blastic lesions. Small bilateral pleural f luid is redemonstrated. IMPRESSION: 1. Newly developed left hepatic lobe mass compatible with a metastatic lesion. 2. Partially visualized innumerable bilateral lung nodules, markedly increased in size and number wi th respect to the 06/15/2020 study. POS: INO
[2020-10-01] MEDS ORDERED: Sodium Bicarbonate 2.5 MEQ/5 ML VIAL ONE (14:32)
[2020-10-01] MEDS ORDERED: Lidocaine 1% PF 5 ML VIAL ONE (14:32)
--- NOTE | 2020-10-01 16:29 | RAD ---
EXAM: XR Chest Insp/Exp PROVIDED CLINICAL HISTORY: Post biopsy right lung mass with tiny right-sided pneumothorax post biopsy noted on CT scan exam. COMPARISON: Chest x-ray 09/30/[address] scan obtained just prior to this exam. FINDINGS: Multiple pulmonary nodules are seen throughout the lungs bilaterally suggesting metastatic disease. M ore confluent opacity is seen overlying the right hilar region likely corresponding to more confluent masslike density on CT exam. No pneumothorax or pleural effusion is evident on this exam. C ardiac silhouette and pulmonary vasculature are within normal limits. IMPRESSION: 1. Numerous bilateral pulmonary nodules related to metastatic disease with more confluent masslike de nsity overlying right hilar region. 2. No pneumothorax visualized on this exam.
--- NOTE | 2020-10-01 16:50 | CT ---
PROCEDURE: CT Lung Perc Biopsy PROVIDED CLINICAL HISTORY: Numerous bilateral metastatic pulmonary nodules. COMPARISON: CTA thorax on 09/30/2020 TECHNIQUE: The procedure including the risks and consultation were discussed with the patient, and informed cons ent was obtained. Patient was placed on the CT scan table in the prone position. A noncontrast CT scan was obtained through the thorax with grid localizer in place. A pleural-based pulmonary nodule m edial aspect right lower lobe was localized, and the area was marked and then meticulously prepped and draped in usual sterile fashion. The skin and subcutaneously tissues were infiltrated with buffered 1% lidocaine for local anesthesia. A 19-gauge guide needle was advanced followed by axial noncontrasted CT images. This was repeated until the tip of the needle was placed just within the pleural-based pulmonary nodule right lower lob e. A total of 2 biopsy specimens were obtained utilizing a 20-gauge core needle biopsy device and coaxial technique. The needle was removed, and hemostasis was achieved with direct pressure. Follow-up noncontrasted CT scan examination demonstrates trace pneumothorax near site of biopsy. Patient tolerated the procedure well and without immediate consultation. Dry sterile dressing was placed at biopsy site. Anupam yaneth was transported to his hospital room in stable condition. IMPRESSION: 1. Innumerable bilateral pulmonary nodules suggesting metastatic disease. 2. Technically successful biopsy of a pleural-based right lower lobe pulmonary nodule. Preliminary pa thology results indicated adequate specimen suggestion of malignant cells. Final pathology report is pending.
--- NOTE | 2020-10-01 19:31 | CON ---
DATE OF CONSULTATION: 10/01/2020 REASON FOR CONSULTATION: Lung masses. 50 minutes of time, of that time greater than 50% was spent with the patient and/or the patient's unit in the hospital. CONSULTING PHYSICIAN: Hospitalist . HISTORY OF PRESENT ILLNESS: The patient is an 80-year-old male who was hospitalized to the hospitalist group yesterday after experiencing a fall at home. He was originally hospitalized this past summer with intracranial bleed for which I saw him for ICU management. Back in June, he had a CT of the abdomen obtained, which showed bilateral renal cysts, bladder thickening. He had a cystoscopy. He was diagnosed with carcinoma in situ and was started on BCG therapy. It should be noted that the patient had nodules evident on CT scan back in June before he started the BCG therapy. Apparently, at some point, the nodules have been noticed and he had been referred to our office, but was pending an appointment for November. During the episode yesterday, he was sent for CT pulmonary angiogram and was found to have diffuse bilateral metastatic disease, primary lesion unknown. He does have a distant smoking history, having quit about 20 years ago. He knows of no known exposures. He has lost about 30 pounds of weight. He is not having fevers or night sweats. PAST MEDICAL HISTORY: Shingles, subdural hematoma, carcinoma in situ of the bladder. PAST SURGICAL HISTORY: Hemorrhoidectomy, catalino holes, cystoscopy. SOCIAL HISTORY: Quit smoking 20 years ago. He is retired from sales. No known exposures. MEDICATIONS: Reviewed. List is on chart. He is on no anticoagulants including no aspirin. REVIEW OF SYSTEMS: Remarkable for the weight loss. Otherwise, negative. PHYSICAL EXAMINATION: VITAL SIGNS: Temperature 98.5, pulse 96, respirations 17, O2 saturation 96% on room air, blood pressure 123/57. GENERAL: The patient is a thin male, who is alert, oriented, in no distress. HEENT: Pupils reactive. Sclerae anicteric. Oropharynx clear. NECK: No adenopathy or JVD. Thyroid is firm, but no nodules are palpated. CARDIOVASCULAR: S1 and S2. Regular without murmur. LUNGS: Clear. ABDOMEN: Soft and nontender to palpation. No hepatosplenomegaly. EXTREMITIES: No clubbing, cyanosis, or edema. LABORATORY DATA: Chest x-ray and CT scans were reviewed. White blood cell count 9.7, hematocrit 33, and platelet count 261. INR 1.1. D-dimer 1.1. Sodium 128, potassium 4.1, chloride 96, CO2 of 23, BUN 13, creatinine 0.6, glucose 93. PSA was 0.28. COVID test is negative. ASSESSMENT: Numerous bilateral lung lesions, which probably indicate metastatic carcinoma. Metastasis from BCG is a possibility, however, these nodules predated the administration of the BCG in this patient. RECOMMENDATIONS: The patient needs a CT needle biopsy as the peripheral lesions are the most amenable to biopsy. I will ask the radiologist to get a core sample for pathology as well as a sample for AFB. I agree with Oncology referral. Job ID: [id number]
--- NOTE | 2020-10-01 23:40 | CON ---
DATE OF CONSULTATION: REASON FOR CONSULTATION: Pulmonary nodules. HISTORY OF PRESENT ILLNESS: Mr. Rojas is a pleasant 80-year-old gentleman with history of BPH and bladder cancer in situ, who has been on BCG treatments for high-grade dysplasia. He presented to the emergency room for weakness and a fall. He admitted to a 20-pound weight loss over the last 7 weeks. He underwent a CT angio of the chest, which was negative for pulmonary emboli, however, which showed bilateral lung nodules and a right lower lobe pulmonary mass. He had a right hepatic lobe mass suspicious for metastasis. He had mediastinal and hilar adenopathy. The patient apparently has a history of benign pulmonary nodules followed by carpet installer helper in [place]. His CT scan in June did show a pulmonary nodules. I believe he was referred to Pulmonary, but had yet to be seen. He denies any shortness of breath, hemoptysis, cough, or hoarseness. He did lose his to massive stroke approximately two weeks ago. He felt that his poor appetite and weight loss were related to his BCG treatments and his 's . PAST MEDICAL HISTORY: 1. Bladder cancer in situ. 2. Subdural hematoma. 3. Shingles. 4. History of benign lung nodules on PET scan. PAST SURGICAL HISTORY: 1. Hemorrhoidectomy, hernia repair, catalino hole for subdural hematoma evacuation. 2. Cystoscopy. 3. Bladder biopsy. ALLERGIES: NO KNOWN DRUG ALLERGIES. HOME MEDICATIONS: 1. Enalapril/hydrochlorothiazide. 2. Flomax. FAMILY HISTORY: No known family history of cancer. SOCIAL HISTORY: Recently , two children. Lives alone. REVIEW OF SYSTEMS: A 12-point review of systems is negative except for noted in HPI. PHYSICAL EXAMINATION: VITAL SIGNS: Temperature is 98.5, pulse is 96, respiratory rate 17, blood pressure is 123/57. He is 96% on room air. GENERAL: This is a well-developed, well-nourished male, in no acute distress. HEENT: Normocephalic and atraumatic. Pupils are equal and reactive to light. NECK: Supple. CV: Regular rate and rhythm. LUNGS: Clear anterior. ABDOMEN: Soft and nontender. Bowel sounds are positive. EXTREMITIES: No clubbing or cyanosis. SKIN: No rash. NEUROLOGIC: Nonfocal. PERTINENT LABORATORY DATA AND X-RAYS: Current WBCs 9.7, hemoglobin 10.9, hematocrit 33.0, platelet count 261,000. He has 70% neutrophils, 8% bands, 6% lymphocytes. PT is 14.8, INR is 1.1, and PTT is 36.3. Sodium 128, potassium 4.1, chloride 96, CO2 is 23, BUN is 13, creatinine 0.66, calcium 8.1, magnesium 1.7. Bilirubin 0.4, AST is 17, ALT is 19, alkaline phosphatase is 98. Troponin is negative. BNP is 22. Serum total protein 5.4, albumin 2.7, , PSA 0.28, TSH is 0.73. Urine is negative. COVID PCR negative. RADIOLOGY: Per HPI. ASSESSMENT: 1. Bilateral pulmonary nodules with masslike area of consolidation measuring 2.6 x 6.4 cm in the right lower lobe of the lung. 2. 2.6 cm liver mass. 3. Bladder cancer in situ. DISCUSSION: The patient has been seen by Dr. Carney and Dr. Hernandez. He has consented to a CT-guided biopsy of his right lower lobe mass. We discussed possibility of a primary lung cancer. He does have a [id number] history of smoking, although he quit 20 years ago. He will have a brain MRI in the morning to look for any metastatic lesions. We will likely need a PET scan in the outpatient setting. Both the patient and patient's son, who was at bedside was updated on plan and possible differential diagnosis. The patient wishes to go home tomorrow after the MRI. He can follow up in our clinic on Thursday to see one of our MDs and discuss diagnosis and treatment options. Thank you for the consult. Job ID: [id number]
[2020-10-02] MEDS: Sodium Chloride 0.9% 1,000 ML IV SCH (06:10)
--- NOTE | 2020-10-02 08:05 | PRG ---
DATE OF SERVICE: 10/02/2020 SUBJECTIVE: patient feeling fatigued, otherwise he states that he is doing okay, underwent percutaneous biopsy of his lung yesterday uneventfully. OBJECTIVE: VITAL SIGNS: Stable at temperature 97, pulse 72, respiratory rate 20, oxygen saturation 93%, blood pressure 110/66. I's and O's 825 of urine output yellow with no significant hematuria. GENERAL: The patient is in no acute distress. ABDOMEN: Soft. No rigidity. No rebound. No suprapubic tenderness or CVA tenderness appreciated. EXTREMITIES: No cyanosis, clubbing, or edema. LABORATORY DATA: No new labs. IMPRESSION AND PLAN: 1. Mr. Rojas is an 80-year-old male with history of BPH. 2. History of carcinoma in situ of the bladder, recently underwent induction BCG 5/6 weekly courses, which he tolerated uneventfully. 3. Multiple pulmonary lesions, liver lesion consistent with metastases, unknown primary, postop day #1 status post percutaneous lung biopsy, pathology pending. patient desires to be discharged home, which is reasonable. He has a standing appointment per me for routine cystoscopy on October 18. will obtain urine culture, FISH cytology prior to his discharge today. will keep that appointment with me for now, pending his biopsy results, which I will review when available. Okay to discharge home from urologic perspective Job ID: [id number] MTDD
[2020-10-02] MEDS: Tamsulosin HCl 0.4 MG CAP PO SCH (08:50)
[2020-10-02] MEDS ORDERED: Dutasteride 0.5 MG CAP PO SCH (09:00)
--- NOTE | 2020-10-02 10:34 | PRG ---
DATE OF SERVICE: 10/02/2020 SUBJECTIVE: The patient is doing well. Has no complaints. He did have his biopsy yesterday, results are not back. OBJECTIVE: VITAL SIGNS: Temperature 97.7, pulse 66, respirations 16, O2 sat 93%, blood pressure 104/53. HEENT: Unremarkable. NECK: No adenopathy or JVD. LUNGS: Clear. CARDIAC: S1 and S2, regular. ABDOMEN: Soft. EXTREMITIES: No edema. ASSESSMENT: Metastatic cancer to the lungs. PLAN: Await lung biopsy. We will call the patient with results when available. Job ID: [id number]
[2020-10-02] MEDS ORDERED: Magnevist 469MG/ML 20 ML VIAL ONE (10:37)
[2020-10-02 11:52] VITALS: BP 110/58; TEMP 98
--- NOTE | 2020-10-02 14:12 | MRI ---
MRI OF BRAIN WITH AND WITHOUT CONTRAST: INDICATION: Lung cancer. Staging. FINDINGS: Ventricles have normal size and position. Mild cortical volume loss. No significant white matter ab normality. There is focal edema seen in the posterior occipital lobes bilaterally on FLAIR sequence. Review of the post contrast images shows a dural-based enhancing mass in the posterior left occipital region measuring 1.0 cm and a dural-based enhancing mass in the posterior right occipital region reg ion measuring 7 mm. Mild surrounding vasogenic edema on FLAIR sequence at these lesions as noted abo ve. Post contrast images show a small enhancing nodule in the right cerebellum best appreciated on either sagittal or coronal imaging measuring approximately 5 mm in the coronal plane. No other enhancing lesion. The cerebral arteries and intracranial internal carotid arteries show felicia w voids. Mild mucosal edema in the posterior left ethmoid air cells and left sphenoid air cell. IMPRESSION: There are 2 dural-based enhancing lesions, one in each occipital lobe as described above. A third en hancing lesion is seen in the right cerebellum as noted above. Findings are consistent with metastat ic lesions to the brain. POS: AGW
--- NOTE | 2020-10-02 15:51 | CT ---
PROCEDURE: CT Lung Perc Biopsy PROVIDED CLINICAL HISTORY: Numerous bilateral metastatic pulmonary nodules. COMPARISON: CTA thorax on 09/30/2020 TECHNIQUE: The procedure including the risks and consultation were discussed with the patient, and informed cons ent was obtained. Patient was placed on the CT scan table in the prone position. A noncontrast CT scan was obtained through the thorax with grid localizer in place. A pleural-based pulmonary nodule m edial aspect right lower lobe was localized, and the area was marked and then meticulously prepped and draped in usual sterile fashion. The skin and subcutaneously tissues were infiltrated with buffered 1% lidocaine for local anesthesia. A 19-gauge guide needle was advanced followed by axial noncontrasted CT images. This was repeated until the tip of the needle was placed just within the pleural-based pulmonary nodule right lower lob e. A total of 2 biopsy specimens were obtained utilizing a 20-gauge core needle biopsy device and coaxial technique. The needle was removed, and hemostasis was achieved with direct pressure. Follow-up noncontrasted CT scan examination demonstrates trace pneumothorax near site of biopsy. Patient tolerated the procedure well and without immediate consultation. Dry sterile dressing was placed at biopsy site. Anupam yaneth was transported to his hospital room in stable condition. IMPRESSION: 1. Innumerable bilateral pulmonary nodules suggesting metastatic disease. 2. Technically successful biopsy of a pleural-based right lower lobe pulmonary nodule. Preliminary pa thology results indicated adequate specimen suggestion of malignant cells. Final pathology report is pending. Transcribed Date/Time: 10/02/2020 3:51 PM
--- NOTE | 2020-10-03 07:22 | PQF ---
Dear : Olya Fagan Date / Time: 10/03/2020 Please exercise your independent, professional judgment in responding to the clarification form. Clinical indicators are provided on the bottom of this form for your review Can you please further clarify the nutritional status of the patient? Please check appropriate box(es): [x ] Protein Calorie Malnutrition: [ ] Mild [x ] Moderate [ ] Severe [ ] Other Malnutrition (please specify) [ ] Underweight without malnutrition [ ] Cachexia [ ] Other diagnosis, please specify [ ] Unable to determine Physician Signature: Date/Time: For continuity of documentation, please document condition throughout progress notes and discharge summary. Thank You. To be completed by CDI/Coding staff for physician review: Present Clinical Indicators - Signs / Symptoms / Labs Results and Location in Medical Record [ x ] BMI 22.6 Nutritional assessment 10/01 [ x ] Loss of appetite Consult pg.1 [ x ] Unintentional weight loss Nutritional assessment 10/01 [ x ] Moderate to severe muscle wasting Nutritional assessment 10/01 [ x ] Severe protein calorie malnutrition Nutritional assessment 10/01 [ x ] Albumin: 09/30=3.3 10/01=2.7 09/30 Laboratory [ x ] Total Protein: 09/30=6.9 10/01=5.4 09/30 Laboratory Present Risk Factors Results and Location in Medical Record [ x ] Dehydration H and P pg.1 [ x ] Hyponatremia H and P pg.1 [ x ] 80 years old H and P pg.1 [ x ] Bladder cancer H and P pg.1 [ x ] Former smoker H and P pg.1 Present Treatments Results and Location in Medical Record [ x ] Dietary consult Nutritional assessment 10/01 [ x ] Nutritional supplements Nutritional assessment 10/01 [ x ] IV Fluids MAR [ x ] Supplement with Ensure Enlive Nutritional assessment 10/01 [ x ] Monitor weight change Nutritional assessment 10/01 [ x ] Monitor total protein intake Nutritional assessment 10/01 CDS/Openstack Developer Signature: Raymond Nunn Phone #: ext [phone] Date 10/03/2020 [facility]
--- NOTE | 2020-10-03 11:00 | DIS ---
DATE OF ADMISSION: 09/30/2020 DATE OF DISCHARGE: 10/02/2020 DISCHARGE DISPOSITION: Home. PRIMARY DISCHARGE DIAGNOSES: Multiple metastases from unknown primary, including lungs and brain; history of bladder cancer, on BCG treatments; significant weight loss; chronic subdural hematoma, which is stable; hypertension; syncope; moderate protein malnutrition. PROCEDURES DONE DURING HOSPITALIZATION: The patient has had a CT abdomen and pelvis done, which showed newly developed left hepatic lobe mass compatible with a metastatic lesion; partially visualized innumerable bilateral lung nodules, markedly increased in size and number with respect to study done on 06/15/2020. CT angio of chest done shows no evidence of PE. There are bilateral lung nodules and superior segment right lower lobe pulmonary mass compatible with neoplasm. The small nodules are likely metastasis. Right hepatic lobe mass is suspicious for metastasis. Small right pleural fluid. Mediastinal and hilar lymphadenopathy. CT-guided lung biopsy done on 10/01/2020 by Interventional Radiology. Histopathology of the biopsy is pending. Echo with 2D Doppler shows EF of 55% to 60%. MRI brain with and without contrast done shows two dural-based enhancing lesions, one in each occipital lobe. A third enhancing lesion is seen in the right cerebellum. Findings are consistent with metastatic lesions to the brain. DISCHARGE MEDICATIONS: 1. Flomax 0.4 mg p.o. q.a.m. 2. Avodart 0.5 mg p.o. daily. 3. DuoNebs q.6 hourly p.r.n. nebulizer. ALLERGIES: NO KNOWN DRUG ALLERGIES. INPATIENT CONSULT: Dr. Hernandez for pulmonology; Ms. Raisa Mcelroy, nurse practitioner, for Oncology; Dr. Carney for Urology. DISCHARGE PLAN: The patient will follow up with Dr. Dennis on 10/08/2020 at 2:[address] Carney on 10/18/2020 at 11:15 a.m. BRIEF COURSE DURING HOSPITALIZATION: The patient initially got admitted on the with complaints of shortness of breath and passing out episodes. Initial workup in the ER revealed multiple metastatic lesions in the lungs. He had known history of bladder cancer and was on BCG treatment for the same. The patient has had nearly 30-pound weight loss in the last 2 months or so. He has had a CT angio of chest, abdominopelvic CAT scan with contrast, and MRI brain with contrast done, all of which showed metastatic lesions with possible lung primary. He has had CT-guided lung biopsy done by Interventional Radiology. The histopathology of the same is pending at present. The patient has had multiple electrolyte abnormalities, which has been corrected. He needs to follow up with Dr. Dennis on the 7th of this month and will discuss the histopathology findings and will have initiation of treatment based on the histopathology. He is otherwise hemodynamically stable and will be shortly discharged home. Please note, I have seen and examined the patient on the day of discharge. I have given complete updates to the patient and his son prior to discharge. Job ID: [id number]
--- NOTE | 2020-10-03 21:15 | PQF ---
Dear :Olya Fagan Date 10/03/2020 Please exercise your independent, professional judgment in responding to the clarification form. Clinical indicators are provided on the bottom of this form for your review Can you please further clarify the diagnosis of the patient? Please check appropriate box(es): [ ] Vasogenic edema [ ] Insignificant Brain MRI Findings [ ] Other diagnosis [ x ] Unable to determine In addition, please specify: Present on Admission (POA): [ ] Yes [ ] No [ ] Unable to determine Physician Signature: Date/Time: For continuity of documentation, please document condition throughout progress notes and discharge summary. Thank You. To be completed by CDI/Coding staff for physician review: Present Clinical Indicators - Signs / Symptoms / Labs Results and Location in Medical Record [ x ] Mild surrounding vasogenic edema on FLAIR Brain MRI 10/02 [ x ] A third enhancing lesion is seen in the right cerebellum a Brain MRI 10/02 [ x ] Findings are consistent with metastatic lesions to the brain Brain MRI 10/02 [ x ] Syncope multifactorial H ad P pg.4 [ x ] Multiple metastasize from unknown primary DS pg.1 Present Risk Factors Results and Location in Medical Record [ x ] 80 years old H and P pg.1 [ x ] Bladder cancer H and P pg.1 [ x ] Malnutrition DS pg.1 [ x ] Chronic subdural hematoma DS pg.1 Present Treatments Results and Location in Medical Record [ x ] Oncology Consult Dr. Mcelroy 10/01 [ x ] Brain MRI Brain MRI 10/02 [ x ] IV Fluids MAR CDS/Biomedical Manager Signature: Raymond Nunn Phone #: ext [phone] Date 10/03/2020 This is a permanent part of the Medical Record [facility]
== END 2020-10-02 13:40 | disposition home or self-care (01) | DRG 181 ==
LOC: ERS 18:17 → 2SE 22:30
PROVIDERS: ADMIT Internal Medicine; ATTEND Internal Medicine
PROC: 0BBF3ZX Excision of Right Lower Lung Lobe, Percutaneous Approach, Diagnostic (ICD-10-PCS; principal; 2020-10-01)
PROC: 0BBF3ZX Excision of Right Lower Lung Lobe, Percutaneous Approach, Diagnostic (ICD-10-PCS; 2020-10-02)
DX: C78.01 Secondary malignant neoplasm of right lung (principal); C78.7 Secondary malignant neoplasm of liver and intrahepatic bile duct; E87.1 Hypo-osmolality and hyponatremia; E44.0 Moderate protein-calorie malnutrition; C79.31 Secondary malignant neoplasm of brain; C78.02 Secondary malignant neoplasm of left lung; E86.0 Dehydration; Z20.828 Contact with and (suspected) exposure to other viral communicable diseases; C61 Malignant neoplasm of prostate; I10 Essential (primary) hypertension; C80.1 Malignant (primary) neoplasm, unspecified; N40.0 Benign prostatic hyperplasia without lower urinary tract symptoms; Z87.891 Personal history of nicotine dependence; Z79.899 Other long term (current) drug therapy; Z86.79 Personal history of other diseases of the circulatory system; Z68.22 Body mass index [BMI] 22.0-22.9, adult
CPT/HCPCS: 32405; 36415; 70450; 70553; 71045; 71275; 72125; 74178; 77012; 80053; 81001; 82378; 82550; 83690; 83735; 83880; 84153; 84443; 84484; 85007; 85025; 85027; 85379; 85610; 85730; 87086; 87635; 88121; 93005; 93306; A9579; Q9967; U0003

== ENCOUNTER 2020-10-10 10:18 | Outpatient (CLI) | payer MEDICARE, OTHER ==
--- NOTE | 2020-10-10 14:22 | PET ---
Radionucleotide PET scan with CT attenuation correction HISTORY: Malignant neoplasm of overlapping sites right lung. Metastatic disease. Initial staging. FINDINGS: Innumerable hypermetabolic nodules are confirmed throughout each lobe of each lung. The lar gest and most hypermetabolic lesion is in the right posterior lung base, max SUV 17.5. Enlarged and slightly enlarged lymph nodes are also present throughout each mediastinal compartment. The largest and most hypermetabolic is at the posterior aspect of the right hilum max SUV 14.1. Uptake along the right cephalic, axillary, and subclavian veins favored to be related to radiotracer injection. Activity associated with the hypodense mass within the medial segment left liver lobe detailed on rec ent CT abdomen shows max SUV 7.3. A barely perceptible gastrohepatic lymph node shows increased activity max SUV 4.8. A tiny focus of increased activity within the left lower pelvis favored to represent a perirectal or internal iliac lymph node shows increased activity max SUV 5.6. A tiny hyperintense focus of activity at the lateral margin of the medial head of the left biceps fem jessa muscle shows max SUV 12.0. This may represent a lymph node or muscular metastatic focus. Only mildly hypermetabolic uptake between the anterolateral aspect of left ribs 7/8, 8/9, 9/10, and T 10/11 is not associated with a well-defined mass and favored to be muscular rather than neoplastic. Degenerative type uptake associated with the lower left cervical spine. IMPRESSION : Widespread metastatic disease involving each lung, mediastinum, liver, gastrohepatic lymph node, left pelvic lymph node, and left biceps femoris.
== END 2020-10-10 10:19 | disposition home or self-care (01) ==
LOC: PET 10:18
PROVIDERS: ATTEND Internal Medicine Hematology & Oncology
DX: C34.81 Malignant neoplasm of overlapping sites of right bronchus and lung (principal); C77.2 Secondary and unspecified malignant neoplasm of intra-abdominal lymph nodes; C77.3 Secondary and unspecified malignant neoplasm of axilla and upper limb lymph nodes
CPT/HCPCS: 78815; A9552